=== PATIENT | male | born 1990 | race African-American/Black ===

== ENCOUNTER 2017-08-03 06:35 | Emergency (ER) | payer BC ==
[2017-08-03] MEDS: IBUPROFEN 800 MG TABLET. PO ×2 (07:16)
== END 2017-08-03 07:25 | disposition home or self-care (01) ==
LOC: ER 06:35
DX: S63.501A Unspecified sprain of right wrist, initial encounter (principal); W22.01XA Walked into wall, initial encounter; Y93.89 Activity, other specified; Y99.8 Other external cause status; Y92.89 Other specified places as the place of occurrence of the external cause
CPT/HCPCS: 29125; 73110; 99284-25